=== PATIENT | female | born 1960 | race Hispanic/Latino ===

== ENCOUNTER 2022-07-10 04:11 | Emergency (ER) | payer OTHER, MEDICAID ==
[~2022-07-10] VITALS: Ht 154.9 cm; Wt 72.6 kg
[2022-07-10] MEDS ORDERED: ONDANSETRON 4MG INJ IVP ONE (04:30)
[2022-07-10] MEDS ORDERED: LACTATED RINGERS 1000ML 1,000 ML IV ONE (04:30)
[2022-07-10 04:37] LABS: BASOPHILS % (AUTO) 0.3 % (0.0-5.0); EOSINOPHILS % (AUTO) 0.1 % (0.0-8.0); HEMATOCRIT 30.1 % (36-48); LYMPHOCYTES % (AUTO) 1.8 % (21.0-51.0); MEAN CORPUSCULAR HEMOGLOBIN 27.7 pg (27.0-33.0); MEAN CORPUSCULAR HGB CONC 33.6 g/dL (32.0-36.0); MEAN CORPUSCULAR VOLUME 82.5 fL (79-99); MONOCYTES % (AUTO) 3.5 % (3.0-13.0); NEUTROPHILS % (AUTO) 93.6 % (40.0-77.0); PLATELET COUNT (AUTO) 208 K/uL (130-400); RED BLOOD CELL COUNT(AUTO) 3.65 MIL/uL (4.00-5.50); RED CELL DISTRIBUTION WIDTH 12.8 % (11.0-15.5); WHITE BLOOD COUNT (AUTO) 14.8 K/uL (4.8-10.8)
[2022-07-10 04:38] LABS: APPEARANCE,URINE CLOUDY (CLEAR); BILIRUBIN,URINE NEGATIVE (NEGATIVE); COLOR,URINE YELLOW (YELLOW); GLUCOSE, URINE (UA) 500 mg/dL (NEGATIVE); KETONES,URINE NEGATIVE (NEGATIVE); LEUKOCYTE ESTERASE ,URINE 500 Leu/uL (NEGATIVE); NITRATE,URINE NEGATIVE (NEGATIVE); OCCULT BLOOD,URINE MODERATE (NEGATIVE); PH,URINE 5.5 (5.0-8.0); PROTEIN,URINE 200 mg/dL (NEGATIVE); UROBILINOGEN,URINE 0.2 mg/dL (0.2-1.0)
[2022-07-10 04:42] LABS: BACTERIA,URINE FEW /HPF (None Seen); MUCUS,URINE RARE LPF (None Seen); SQUAMOUS EPITHELIAL CELL,UR FEW /HPF (0-2); WBC,URINE TNTC /HPF (0-1)
[2022-07-10 04:47] LABS: CREATININE 2.8 mg/dL (0.5-1.5); POTASSIUM 3.2 mmol/L (3.5-5.1)
[2022-07-10 04:56] LABS: ALBUMIN 2.5 g/dL (3.5-5.0); TOTAL PROTEIN, SERUM 6.6 g/dL (6.0-8.3)
[2022-07-10] MEDS ORDERED: CEFTRIAXONE 1G VIAL IVP ONE (05:00)
[2022-07-10] MEDS ORDERED: LOPE2CAP PO (05:15)
[2022-07-10] MEDS ORDERED: SULF1TAB42 PO (05:15)
[2022-07-10] MEDS ORDERED: ONDA4TAB10 PO (05:15)
[2022-07-10 05:20] VITALS: BP 112/52
[2022-07-10] MEDS ORDERED: POTASSIUM CHLORIDE 10% ELIXIR 20 MEQ/15 ML UDCUP PO ONE (05:30)
== END 2022-07-10 06:24 | disposition home or self-care (01) ==
LOC: EDH 04:11
DX: K52.9 Noninfective gastroenteritis and colitis, unspecified (principal); N39.0 Urinary tract infection, site not specified; E11.9 Type 2 diabetes mellitus without complications; Z79.899 Other long term (current) drug therapy
CPT/HCPCS: 99284; 96374; 96361; 96375; 84484; 80053; 83690; 85025; 87077; 87088; 87186; 81001; 36415; J7120; J0696; J2405